=== PATIENT | male | born 1945 | race Caucasian/White ===

== ENCOUNTER 2017-09-18 10:39 | Emergency (ER) | payer OTHER, MEDICARE ==
[~2017-09-18] VITALS: Ht 188 cm; Wt 113.6 kg
[2017-09-18 10:54] VITALS: Ht 188 cm; Wt 113.6 kg
[2017-09-18] MEDS ORDERED: UNK BP MED (10:56)
[2017-09-18 11:33] LABS: APPEARANCE CLEAR (CLEAR); BILIRUBIN NEGATIVE (NEGATIVE); COLOR STRAW (YELLOW); GLUCOSE NEGATIVE (NEGATIVE); KETONE NEGATIVE (NEGATIVE); NITRITE NEGATIVE (NEGATIVE); PROTEIN NEGATIVE (NEGATIVE); SPECIFIC GRAVITY 1.005 (1.005-1.020); UROBILINOGEN NORMAL (NORMAL)
[2017-09-18 11:33] LABS: BASOPHILS 0.3 % (0-2); EOSINOPHILS 0.7 % (0-7); HEMATOCRIT 42.4 % (42.0-54.0); HEMOGLOBIN 14.6 g/dL (13.5-17.5); IMMATURE GRANULOCYTES 0.1 % (0-5); LYMPHOCYTES 16.2 % (15-50); MCH 32.4 pg (26.0-34.0); MCHC 34.4 g/dL (31.0-37.0); MCV 94.2 fL (80.0-100.0); MONOCYTES 10.9 % (2-11); NEUTROPHILS 71.8 % (40-80); PLATELET COUNT 186 10x3/uL (130-400); RDW 13.2 % (11.5-14.5); WBC 6.8 10x3/uL (4.8-10.8)
[2017-09-18 11:42] LABS: UDS - AMPHET NEGATIVE QUAL (NEGATIVE); UDS - BARB NEGATIVE QUAL (NEGATIVE); UDS - BENZO NEGATIVE QUAL (NEGATIVE); UDS - COCAINE NEGATIVE QUAL (NEGATIVE); UDS - OPIATE NEGATIVE QUAL (NEGATIVE); UDS - PCP NEGATIVE QUAL (NEGATIVE); UDS - THC NEGATIVE QUAL (NEGATIVE)
[2017-09-18 11:51] LABS: ALBUMIN 3.6 g/dL (3.4-5.0); ALKALINE PHOSPHATASE 58 U/L (46-116); ALT (SGPT) 28 U/L (10-68); BILIRUBIN - TOTAL 0.56 mg/dL (0.2-1.3); CALC OSMOLALITY 277 mosm/kg (275-300); CALCIUM 8.6 mg/dL (8.5-10.1); CARBON DIOXIDE 27.4 mmol/L (21.0-32.0); CHLORIDE - SERUM 103 mmol/L (98-107); CREATININE - SERUM 0.9 mg/dL (0.6-1.3); GLUCOSE 88 mg/dL (74-106); POTASSIUM - SERUM 4.3 mmol/L (3.5-5.1); PROTEIN - SERUM 7.5 g/dL (6.4-8.2); SODIUM 139 mmol/L (136-145); UREA NITROGEN 14 mg/dL (7-18); eGFR NON AFRICAN AMERICAN 89 mL/min (90-120)
[2017-09-18 12:00] LABS: CKMB 2.6 U/L (0.0-3.6); CREATINE KINASE 285 UL (21-232); MAGNESIUM - SERUM 2.1 mg/dL (1.8-2.4); THYROID STIMULATING HORMONE 1.18 uIU/mL (0.36-3.74)
[2017-09-18 12:02] LABS: APTT 28.1 SECONDS (22.8-39.4); INR 1.03 (0.85-1.17); PROTIME 12.8 SECONDS (11.6-15.0)
[2017-09-18 12:07] LABS: TROPONIN-I < 0.017 ng/mL (0.000-0.060)
[2017-09-18 13:42] VITALS: BP 153/95
== END 2017-09-18 13:43 | disposition home or self-care (01) ==
LOC: D.ER 10:39
PROVIDERS: Family Medicine
DX: E86.0 Dehydration (principal); I10 Essential (primary) hypertension